=== PATIENT | male | born 1930 | race Caucasian/White ===

== ENCOUNTER 2019-01-16 20:06 | Inpatient (IN) ==
[2019-01-16 20:43] LABS: Basophils # 0.1 10*3/uL (0.0-0.2); Basophils % 0.4 % (0.0-0.8); Eosinophils # 0.1 10*3/uL (0.0-0.87); Eosinophils % 0.8 % (0.00-10.9); Hemoglobin 9.8 GM/DL (14.0-18.0); Immature Granulocytes % 0.8 %; Immature Granulocytes Absolute 0.13 #; Lymphocytes # 1.6 10*3/uL (1.4-4.0); Lymphocytes % 9.6 % (21.2-54.2); Mean Corpuscular HGB Conc 31.6 GM/DL (32-36); Mean Corpuscular Hemoglobin 31 PG (27-34); Mean Corpuscular Volume 97.8 FL (87-102); Mean Platelet Volume 11.7 FL (9.6-12.0); Monocytes # 0.6 10*3/uL (0.11-0.8); Monocytes % 3.7 % (1.7-12.7); Neutrophils # 14.2 10*3/uL (1.4-7.4); Neutrophils % 84.7 % (38.7-73.9); Platelet Count 269 T/CUMM (130-400); Red Blood Count 3.17 MC/CUMM (3.8-5.5); Red Cell Distribution Width 12.9 % (9.3-17.3); White Blood Count 16.7 T/CUMM (4-12)
[2019-01-16 20:53] LABS: PT Patient Result 10.4 SECS; Partial Thromboplastin Time 25.1 SECS (0-40)
[2019-01-16] MEDS ORDERED: FUROSEMIDE 40 MG/4 ML VIAL IV STA (21:06)
[2019-01-16] MEDS ORDERED: cefTRIAXone 1,000 MG in SODIUM CHLORIDE 0.9% 100 ML IV STA (21:06)
[2019-01-16] MEDS ORDERED: AZITHROMYCIN 250 MG TABLET PO STA (21:07)
[2019-01-16 21:13] LABS: Alanine Aminotransferase 13 U/L (16-61); Albumin 3.3 G/DL (3.4-5.0); Alkaline Phosphatase 94 U/L (45-117); Aspartate Amino Transferase 13 U/L (0-37); Bilirubin,Total < 0.39 MG/DL (0.2-1.0); Blood Urea Nitrogen 36 MG/DL (7-18); Glucose 207 MG/DL (74-106); Osmolality,Calculated 277.5 MOS/KG (273-304); Sodium 132 MMOL/L (136-145); Total Protein 6.6 G/DL (6.4-8.3)
[2019-01-16 21:15] LABS: Potassium 6.4 MMOL/L (3.5-5.1)
[2019-01-16] MEDS ORDERED: INSULIN REGULAR 100 UNIT/ML IV STA (22:00)
[2019-01-16] MEDS ORDERED: SODIUM BICARBONATE 50 MEQ/50 ML VIAL IV STA ×2 (22:00→22:01)
[2019-01-16] MEDS ORDERED: DEXTROSE 50% 25 GM/50 ML VIAL IV STA (22:00)
[2019-01-16] MEDS ORDERED: CALCIUM GLUCONATE 2,000 MG in SODIUM CHLORIDE 0.9% 100 ML IV ONE (22:01)
[2019-01-16] MEDS ORDERED: SODIUM BICARBONATE 50 MEQ/50 ML SYRINGE IV STA ×2 (22:06→22:07)
[2019-01-16] MEDS ORDERED: DEXTROSE 50% 25 GM/50 ML SYRINGE IV ONE (22:09)
[2019-01-16 23:00] LABS: Apearance,Urine CLEAR (Clear); Bilirubin,Urine Negative (Negative); Blood, Urine Negative (Negative); Glucose,Urine (UA) Negative (Negative); Hyaline Casts,Urine 25 /LPF (0-3); Ketones,Urine Negative (Negative); Mucus,Urine Occasional /LPF (Occasional); Nitrite,Urine Negative (Negative); Protein,Urine Negative; RBC,Urine 1 /HPF (0-4); Urine Color Yellow (Yellow); Urine Urobilinogen < 2.0 EU/DL (0.2-1.0); WBC,Urine 1 /HPF (0-6)
[2019-01-16] MEDS ORDERED: ACETAMINOPHEN 325 MG TABLET PO PRN (23:21)
[2019-01-16] MEDS ORDERED: ALBUTEROL 2.5 MG/3 ML NEB RESP TX PRN (23:21)
[2019-01-16] MEDS ORDERED: DEXTROSE 50% 25 GM/50 ML VIAL IV PRN ×2 (23:21)
[2019-01-16] MEDS ORDERED: MAGNESIUM SULF RIDER 2 GM in PREMIX 1 EACH IV PRN (23:21)
[2019-01-16] MEDS ORDERED: MAGNESIUM SULF RIDER 4 GM in PREMIX 1 EACH IV PRN (23:21)
[2019-01-16] MEDS ORDERED: GLUCAGON 1 MG VIAL IM PRN ×2 (23:21)
[2019-01-16] MEDS ORDERED: ENOXAPARIN 40 MG/0.4 ML SYRINGE SUBCUT SCH (23:30)
[2019-01-17] MEDS: ALBUTEROL/IPRATROPIUM 3 ML NEB RESP TX SCH ×4 (00:35→19:33)
[2019-01-17] MEDS: TAMSULOSIN 0.4 MG CAPSULE PO SCH ×2 (00:44→20:34)
[2019-01-17] MEDS: INSULIN REGULAR 100 UNIT/ML SUBCUT SCH ×5 (01:00→20:34)
[2019-01-17] MEDS ORDERED: ENOXAPARIN 60 MG/0.6 ML SYRINGE SUBCUT ONE (06:26)
[2019-01-17 08:05] LABS: Basophils % 0.3 % (0.0-0.8); Hematocrit 32.1 VOL% (42.0-52.0); Hemoglobin 10.1 GM/DL (14.0-18.0); Immature Granulocytes % 0.4 %; Immature Granulocytes Absolute 0.03 #; Lymphocytes % 13.5 % (21.2-54.2); Mean Corpuscular HGB Conc 31.5 GM/DL (32-36); Mean Corpuscular Hemoglobin 30 PG (27-34); Mean Corpuscular Volume 96.1 FL (87-102); Mean Platelet Volume 12.2 FL (9.6-12.0); Monocytes # 0.5 10*3/uL (0.11-0.8); Monocytes % 6.2 % (1.7-12.7); Neutrophils # 6.1 10*3/uL (1.4-7.4); Neutrophils % 79.6 % (38.7-73.9); Platelet Count 219 T/CUMM (130-400); Red Blood Count 3.34 MC/CUMM (3.8-5.5); Red Cell Distribution Width 12.9 % (9.3-17.3); White Blood Count 7.6 T/CUMM (4-12)
[2019-01-17] MEDS: GEMFIBROZIL 600 MG TABLET PO SCH ×2 (08:17→16:03)
[2019-01-17] MEDS: CARVEDILOL 25 MG TABLET PO SCH ×2 (08:17→16:03)
[2019-01-17] MEDS: PANTOPRAZOLE 40 MG TABLET PO SCH (08:17)
[2019-01-17] MEDS: ASPIRIN EC 81 MG TABLET PO SCH (08:17)
[2019-01-17] MEDS: DOCUSATE SODIUM 100 MG CAPSULE PO SCH (08:17)
[2019-01-17] MEDS: CLOPIDOGREL 75 MG TABLET PO SCH (08:17)
[2019-01-17] MEDS: FINASTERIDE 5 MG TABLET PO SCH (08:17)
[2019-01-17] MEDS: ISOSORBIDE MONONITRATE 30 MG TABLET PO SCH (08:17)
[2019-01-17 08:25] LABS: Albumin 3.1 G/DL (3.4-5.0); Bilirubin,Total 0.4 MG/DL (0.2-1.0); Calcium 10.2 MG/DL (8.5-10.1); Osmolality,Calculated 280.1 MOS/KG (273-304); Potassium 5.2 MMOL/L (3.5-5.1); Total Protein 6.9 G/DL (6.4-8.3)
[2019-01-17] MEDS: MAGNESIUM OXIDE 400 MG TABLET PO SCH ×2 (08:25→20:34)
[2019-01-17] MEDS: RANOLAZINE 500 MG TABLET PO SCH ×2 (08:25→20:33)
[2019-01-17] MEDS: FUROSEMIDE 40 MG/4 ML VIAL IV SCH ×2 (08:25→16:03)
[2019-01-17] MEDS: TELMISARTAN 40 MG TABLET PO SCH (08:28)
[2019-01-17 08:41] LABS: CKMB % 5.2 %
[2019-01-17 08:47] LABS: Troponin I 2.28 NG/ML (0.00-0.045)
[2019-01-17] MEDS ORDERED: ASCORBIC ACID 500 MG TABLET PO SCH (09:00)
[2019-01-17] MEDS: ATORVASTATIN 40 MG TABLET PO SCH (20:34)
[2019-01-17] MEDS: ASCORBIC ACID 500 MG TABLET PO SCH (20:34)
[2019-01-17] MEDS: AZITHROMYCIN INJ 500 MG in SODIUM CHLORIDE 0.9% 250 ML IV SCH (20:35)
[2019-01-17] MEDS: cefTRIAXone 1,000 MG in SYRINGE 1 EACH IV SCH (21:15)
[2019-01-18] MEDS: ALBUTEROL/IPRATROPIUM 3 ML NEB RESP TX SCH ×5 (01:30→20:00)
[2019-01-18 05:06] LABS: Basophils % 0.2 % (0.0-0.8); Eosinophils % 0.1 % (0.00-10.9); Hematocrit 28.7 VOL% (42.0-52.0); Hemoglobin 9.1 GM/DL (14.0-18.0); Immature Granulocytes % 0.5 %; Immature Granulocytes Absolute 0.04 #; Lymphocytes # 1.1 10*3/uL (1.4-4.0); Lymphocytes % 12.5 % (21.2-54.2); Mean Corpuscular HGB Conc 31.7 GM/DL (32-36); Mean Corpuscular Hemoglobin 30 PG (27-34); Mean Platelet Volume 11.9 FL (9.6-12.0); Monocytes # 0.7 10*3/uL (0.11-0.8); Neutrophils # 6.6 10*3/uL (1.4-7.4); Neutrophils % 78.7 % (38.7-73.9); Platelet Count 200 T/CUMM (130-400); Red Blood Count 2.99 MC/CUMM (3.8-5.5); Red Cell Distribution Width 12.8 % (9.3-17.3); White Blood Count 8.4 T/CUMM (4-12)
[2019-01-18 05:15] LABS: Calcium 9.7 MG/DL (8.5-10.1); Osmolality,Calculated 283.1 MOS/KG (273-304)
[2019-01-18] MEDS: INSULIN REGULAR 100 UNIT/ML SUBCUT SCH ×4 (07:35→22:17)
[2019-01-18] MEDS: RANOLAZINE 500 MG TABLET PO SCH ×2 (08:21→22:18)
[2019-01-18] MEDS: ASCORBIC ACID 500 MG TABLET PO SCH ×2 (08:21→22:18)
[2019-01-18] MEDS: CLOPIDOGREL 75 MG TABLET PO SCH (08:21)
[2019-01-18] MEDS: FINASTERIDE 5 MG TABLET PO SCH (08:21)
[2019-01-18] MEDS: GEMFIBROZIL 600 MG TABLET PO SCH ×2 (08:21→16:26)
[2019-01-18] MEDS: ASPIRIN EC 81 MG TABLET PO SCH (08:22)
[2019-01-18] MEDS: MAGNESIUM OXIDE 400 MG TABLET PO SCH ×2 (08:22→22:18)
[2019-01-18] MEDS: CARVEDILOL 25 MG TABLET PO SCH ×2 (08:22→16:26)
[2019-01-18] MEDS: FUROSEMIDE 40 MG/4 ML VIAL IV SCH ×2 (08:22→16:20)
[2019-01-18] MEDS: ISOSORBIDE MONONITRATE 30 MG TABLET PO SCH (08:22)
[2019-01-18] MEDS: PANTOPRAZOLE 40 MG TABLET PO SCH (08:22)
[2019-01-18] MEDS: DOCUSATE SODIUM 100 MG CAPSULE PO SCH (08:22)
[2019-01-18] MEDS: TELMISARTAN 40 MG TABLET PO SCH (08:22)
[2019-01-18] MEDS: ENOXAPARIN 100 MG/ML SYRINGE SUBCUT SCH (08:23)
[2019-01-18] MEDS: ONDANSETRON 4 MG/2 ML VIAL IV PRN (16:50)
[2019-01-18] MEDS: TAMSULOSIN 0.4 MG CAPSULE PO SCH (22:17)
[2019-01-18] MEDS: ATORVASTATIN 40 MG TABLET PO SCH (22:18)
[2019-01-18] MEDS: cefTRIAXone 1,000 MG in SYRINGE 1 EACH IV SCH (22:19)
[2019-01-18] MEDS: AZITHROMYCIN INJ 500 MG in SODIUM CHLORIDE 0.9% 250 ML IV SCH (22:19)
[2019-01-19] MEDS: ALBUTEROL/IPRATROPIUM 3 ML NEB RESP TX SCH ×4 (01:51→19:07)
[2019-01-19 04:46] LABS: Basophils % 0.6 % (0.0-0.8); Eosinophils % 0.2 % (0.00-10.9); Hematocrit 27.2 VOL% (42.0-52.0); Hemoglobin 8.7 GM/DL (14.0-18.0); Immature Granulocytes % 0.6 %; Immature Granulocytes Absolute 0.03 #; Lymphocytes # 0.9 10*3/uL (1.4-4.0); Lymphocytes % 17.3 % (21.2-54.2); Mean Corpuscular Hemoglobin 31 PG (27-34); Mean Corpuscular Volume 95.4 FL (87-102); Mean Platelet Volume 11.8 FL (9.6-12.0); Monocytes # 0.4 10*3/uL (0.11-0.8); Monocytes % 7.7 % (1.7-12.7); Neutrophils # 3.9 10*3/uL (1.4-7.4); Neutrophils % 73.6 % (38.7-73.9); Platelet Count 195 T/CUMM (130-400); Red Blood Count 2.85 MC/CUMM (3.8-5.5); Red Cell Distribution Width 12.8 % (9.3-17.3); White Blood Count 5.3 T/CUMM (4-12)
[2019-01-19 05:01] LABS: Calcium 9.1 MG/DL (8.5-10.1); Osmolality,Calculated 287.1 MOS/KG (273-304); Potassium 5.2 MMOL/L (3.5-5.1)
[2019-01-19] MEDS: INSULIN REGULAR 100 UNIT/ML SUBCUT SCH ×4 (07:45→20:59)
[2019-01-19] MEDS: FINASTERIDE 5 MG TABLET PO SCH (08:17)
[2019-01-19] MEDS: DOCUSATE SODIUM 100 MG CAPSULE PO SCH (08:17)
[2019-01-19] MEDS: TELMISARTAN 40 MG TABLET PO SCH (08:17)
[2019-01-19] MEDS: RANOLAZINE 500 MG TABLET PO SCH ×2 (08:17→21:00)
[2019-01-19] MEDS: AZITHROMYCIN 250 MG TABLET PO SCH (08:17)
[2019-01-19] MEDS: CARVEDILOL 25 MG TABLET PO SCH ×2 (08:18→16:16)
[2019-01-19] MEDS: CLOPIDOGREL 75 MG TABLET PO SCH (08:18)
[2019-01-19] MEDS: GEMFIBROZIL 600 MG TABLET PO SCH ×2 (08:18→16:16)
[2019-01-19] MEDS: MAGNESIUM OXIDE 400 MG TABLET PO SCH ×2 (08:18→21:00)
[2019-01-19] MEDS: ASPIRIN EC 81 MG TABLET PO SCH (08:18)
[2019-01-19] MEDS: ASCORBIC ACID 500 MG TABLET PO SCH ×2 (08:18→21:00)
[2019-01-19] MEDS: ISOSORBIDE MONONITRATE 30 MG TABLET PO SCH (08:19)
[2019-01-19] MEDS: FUROSEMIDE 40 MG/4 ML VIAL IV SCH (08:19)
[2019-01-19] MEDS: ENOXAPARIN 100 MG/ML SYRINGE SUBCUT SCH (08:19)
[2019-01-19] MEDS: PANTOPRAZOLE 40 MG TABLET PO SCH (08:19)
[2019-01-19] MEDS: TAMSULOSIN 0.4 MG CAPSULE PO SCH (20:59)
[2019-01-19] MEDS: ATORVASTATIN 40 MG TABLET PO SCH (20:59)
[2019-01-19] MEDS: cefTRIAXone 1,000 MG in SYRINGE 1 EACH IV SCH (21:00)
[2019-01-20] MEDS: ALBUTEROL/IPRATROPIUM 3 ML NEB RESP TX SCH ×4 (00:25→19:27)
[2019-01-20 05:19] LABS: Basophils # 0.1 10*3/uL (0.0-0.2); Basophils % 0.7 % (0.0-0.8); Eosinophils # 0.1 10*3/uL (0.0-0.87); Eosinophils % 0.7 % (0.00-10.9); Hematocrit 26.5 VOL% (42.0-52.0); Hemoglobin 8.8 GM/DL (14.0-18.0); Immature Granulocytes % 0.4 %; Immature Granulocytes Absolute 0.03 #; Lymphocytes # 1.1 10*3/uL (1.4-4.0); Lymphocytes % 15.1 % (21.2-54.2); Mean Corpuscular HGB Conc 33.2 GM/DL (32-36); Mean Corpuscular Hemoglobin 32 PG (27-34); Mean Platelet Volume 12.2 FL (9.6-12.0); Monocytes # 0.6 10*3/uL (0.11-0.8); Monocytes % 8.8 % (1.7-12.7); Neutrophils # 5.4 10*3/uL (1.4-7.4); Neutrophils % 74.3 % (38.7-73.9); Platelet Count 211 T/CUMM (130-400); Red Blood Count 2.79 MC/CUMM (3.8-5.5); White Blood Count 7.3 T/CUMM (4-12)
[2019-01-20 05:38] LABS: Calcium 9.4 MG/DL (8.5-10.1); Osmolality,Calculated 281.7 MOS/KG (273-304); Potassium 5.3 MMOL/L (3.5-5.1)
[2019-01-20] MEDS: INSULIN REGULAR 100 UNIT/ML SUBCUT SCH ×3 (08:09→17:33)
[2019-01-20] MEDS: GEMFIBROZIL 600 MG TABLET PO SCH ×2 (09:27→17:33)
[2019-01-20] MEDS: CARVEDILOL 25 MG TABLET PO SCH ×2 (09:28→17:33)
[2019-01-20] MEDS: ASPIRIN EC 81 MG TABLET PO SCH (09:29)
[2019-01-20] MEDS: ISOSORBIDE MONONITRATE 30 MG TABLET PO SCH (09:30)
[2019-01-20] MEDS: DOCUSATE SODIUM 100 MG CAPSULE PO SCH (09:30)
[2019-01-20] MEDS: FUROSEMIDE 40 MG TABLET PO SCH (09:31)
[2019-01-20] MEDS: CLOPIDOGREL 75 MG TABLET PO SCH (09:32)
[2019-01-20] MEDS: FINASTERIDE 5 MG TABLET PO SCH (09:33)
[2019-01-20] MEDS: RANOLAZINE 500 MG TABLET PO SCH ×2 (09:34→21:46)
[2019-01-20] MEDS: PANTOPRAZOLE 40 MG TABLET PO SCH (09:34)
[2019-01-20] MEDS: ASCORBIC ACID 500 MG TABLET PO SCH ×2 (09:36→21:47)
[2019-01-20] MEDS: AZITHROMYCIN 250 MG TABLET PO SCH (09:37)
[2019-01-20] MEDS: MAGNESIUM OXIDE 400 MG TABLET PO SCH ×2 (09:41→21:47)
[2019-01-20] MEDS: ENOXAPARIN 100 MG/ML SYRINGE SUBCUT SCH (09:41)
[2019-01-20] MEDS: TAMSULOSIN 0.4 MG CAPSULE PO SCH (21:47)
[2019-01-20] MEDS: ATORVASTATIN 40 MG TABLET PO SCH (21:47)
[2019-01-21] MEDS: cefTRIAXone 1,000 MG in SYRINGE 1 EACH IV SCH ×2 (00:42→22:47)
[2019-01-21] MEDS: INSULIN REGULAR 100 UNIT/ML SUBCUT SCH ×5 (00:42→22:34)
[2019-01-21] MEDS: ALBUTEROL/IPRATROPIUM 3 ML NEB RESP TX SCH ×4 (00:43→19:35)
[2019-01-21 03:47] LABS: Basophils % 0.3 % (0.0-0.8); Hematocrit 25.3 VOL% (42.0-52.0); Hemoglobin 8.4 GM/DL (14.0-18.0); Immature Granulocytes % 0.2 %; Immature Granulocytes Absolute 0.01 #; Lymphocytes % 18.2 % (21.2-54.2); Mean Corpuscular HGB Conc 33.2 GM/DL (32-36); Mean Corpuscular Hemoglobin 31 PG (27-34); Mean Corpuscular Volume 93.4 FL (87-102); Mean Platelet Volume 12.2 FL (9.6-12.0); Monocytes # 0.7 10*3/uL (0.11-0.8); Monocytes % 12.2 % (1.7-12.7); Neutrophils % 69.1 % (38.7-73.9); Platelet Count 213 T/CUMM (130-400); Red Blood Count 2.71 MC/CUMM (3.8-5.5); Red Cell Distribution Width 12.9 % (9.3-17.3); White Blood Count 5.7 T/CUMM (4-12)
[2019-01-21 04:03] LABS: Calcium 8.9 MG/DL (8.5-10.1); Osmolality,Calculated 286.7 MOS/KG (273-304); Potassium 5.2 MMOL/L (3.5-5.1)
[2019-01-21] MEDS: PANTOPRAZOLE 40 MG TABLET PO SCH (08:39)
[2019-01-21] MEDS: FINASTERIDE 5 MG TABLET PO SCH (08:39)
[2019-01-21] MEDS: RANOLAZINE 500 MG TABLET PO SCH ×2 (08:39→22:42)
[2019-01-21] MEDS: ISOSORBIDE MONONITRATE 30 MG TABLET PO SCH (08:39)
[2019-01-21] MEDS: CLOPIDOGREL 75 MG TABLET PO SCH (08:40)
[2019-01-21] MEDS: GEMFIBROZIL 600 MG TABLET PO SCH ×2 (08:40→16:28)
[2019-01-21] MEDS: DOCUSATE SODIUM 100 MG CAPSULE PO SCH (08:40)
[2019-01-21] MEDS: ASPIRIN EC 81 MG TABLET PO SCH (08:40)
[2019-01-21] MEDS: AZITHROMYCIN 250 MG TABLET PO SCH (08:40)
[2019-01-21] MEDS: ASCORBIC ACID 500 MG TABLET PO SCH ×2 (08:40→22:40)
[2019-01-21] MEDS: MAGNESIUM OXIDE 400 MG TABLET PO SCH ×2 (08:41→22:41)
[2019-01-21] MEDS: CARVEDILOL 25 MG TABLET PO SCH ×2 (08:41→16:28)
[2019-01-21] MEDS: ENOXAPARIN 100 MG/ML SYRINGE SUBCUT SCH (08:41)
[2019-01-21] MEDS: FUROSEMIDE 40 MG TABLET PO SCH (08:41)
[2019-01-21] MEDS: ONDANSETRON 4 MG/2 ML VIAL IV PRN (08:51)
[2019-01-21] MEDS ORDERED: SODIUM CHLORIDE 0.9% 1,000 ML IV PRN (13:17)
[2019-01-21] MEDS: SODIUM CHLORIDE 0.9% 1,000 ML IV SCH (14:56)
[2019-01-21] MEDS: TAMSULOSIN 0.4 MG CAPSULE PO SCH (22:38)
[2019-01-21] MEDS: ATORVASTATIN 40 MG TABLET PO SCH (22:41)
[2019-01-22] MEDS: ALBUTEROL/IPRATROPIUM 3 ML NEB RESP TX SCH ×5 (00:31→23:31)
[2019-01-22 04:32] LABS: Basophils % 0.1 % (0.0-0.8); Hematocrit 29.5 VOL% (42.0-52.0); Immature Granulocytes % 0.4 %; Immature Granulocytes Absolute 0.04 #; Lymphocytes # 0.7 10*3/uL (1.4-4.0); Lymphocytes % 7.4 % (21.2-54.2); Mean Corpuscular HGB Conc 33.9 GM/DL (32-36); Mean Corpuscular Hemoglobin 31 PG (27-34); Mean Corpuscular Volume 90.2 FL (87-102); Mean Platelet Volume 12.6 FL (9.6-12.0); Monocytes # 0.7 10*3/uL (0.11-0.8); Monocytes % 7.8 % (1.7-12.7); Neutrophils # 7.9 10*3/uL (1.4-7.4); Neutrophils % 84.3 % (38.7-73.9); Platelet Count 202 T/CUMM (130-400); Red Blood Count 3.27 MC/CUMM (3.8-5.5); Red Cell Distribution Width 13.7 % (9.3-17.3); White Blood Count 9.3 T/CUMM (4-12)
[2019-01-22 04:56] LABS: Calcium 9.2 MG/DL (8.5-10.1); Osmolality,Calculated 282.2 MOS/KG (273-304); Potassium 5.6 MMOL/L (3.5-5.1)
[2019-01-22] MEDS: INSULIN REGULAR 100 UNIT/ML SUBCUT SCH ×5 (07:59→22:33)
[2019-01-22] MEDS: ASCORBIC ACID 500 MG TABLET PO SCH ×2 (09:00→22:25)
[2019-01-22] MEDS: ISOSORBIDE MONONITRATE 30 MG TABLET PO SCH (09:01)
[2019-01-22] MEDS: GEMFIBROZIL 600 MG TABLET PO SCH ×2 (09:01→17:00)
[2019-01-22] MEDS: FINASTERIDE 5 MG TABLET PO SCH (09:01)
[2019-01-22] MEDS: DOCUSATE SODIUM 100 MG CAPSULE PO SCH (09:01)
[2019-01-22] MEDS: RANOLAZINE 500 MG TABLET PO SCH ×2 (09:01→22:25)
[2019-01-22] MEDS: PANTOPRAZOLE 40 MG TABLET PO SCH (09:01)
[2019-01-22] MEDS: AZITHROMYCIN 250 MG TABLET PO SCH (09:01)
[2019-01-22] MEDS: ENOXAPARIN 100 MG/ML SYRINGE SUBCUT SCH (09:02)
[2019-01-22] MEDS: CLOPIDOGREL 75 MG TABLET PO SCH (09:02)
[2019-01-22] MEDS: ASPIRIN EC 81 MG TABLET PO SCH (09:02)
[2019-01-22] MEDS: CARVEDILOL 25 MG TABLET PO SCH ×2 (09:02→17:00)
[2019-01-22] MEDS: MAGNESIUM OXIDE 400 MG TABLET PO SCH ×2 (09:02→20:50)
[2019-01-22] MEDS: POLYETHYLENE GLYCOL POWDER 17 GM PACK PO SCH (09:22)
[2019-01-22] MEDS ORDERED: FUROSEMIDE 40 MG/4 ML VIAL IV SCH (13:00)
[2019-01-22] MEDS: methylPREDNISolone SOD SUC 40 MG/1 ML VIAL IV SCH ×2 (15:51→22:39)
[2019-01-22] MEDS: SODIUM CHLORIDE 0.9% 1,000 ML IV SCH (15:59)
[2019-01-22] MEDS: MAGNESIUM HYDROXIDE SUSP 30 ML UDCUP PO PRN (17:00)
[2019-01-22] MEDS: ONDANSETRON 4 MG/2 ML VIAL IV PRN (18:05)
[2019-01-22] MEDS ORDERED: ESCITALOPRAM 10 MG TABLET PO SCH (21:00)
[2019-01-22] MEDS: ATORVASTATIN 40 MG TABLET PO SCH (22:26)
[2019-01-22] MEDS: TAMSULOSIN 0.4 MG CAPSULE PO SCH (22:26)
[2019-01-22] MEDS: ESCITALOPRAM 10 MG TABLET PO SCH (22:26)
[2019-01-22] MEDS: cefTRIAXone 1,000 MG in SYRINGE 1 EACH IV SCH (22:27)
[2019-01-22] MEDS ORDERED: FUROSEMIDE 20 MG/2 ML VIAL IV ONE (23:30)
[2019-01-23 00:39] LABS: ABG Base Excess -3.9 MMOL/L (-2.5-2.5); ABG Oxygen Saturation 87.2 % (95-100); ABG PCO2 50.3 MM HG (35-48); ABG PH 7.272 (7.35-7.45); ABG PO2 58.5 MM HG (80-95); ABG TCO2 21.6 MMOL/L (23-27); Allen Test Positive
[2019-01-23] MEDS ORDERED: MAGNESIUM SULF RIDER 50 ML IV ONE (03:35)
[2019-01-23] MEDS ORDERED: AMIODARONE 450 MG/9 ML VIAL IV ONE (03:44)
[2019-01-23] MEDS ORDERED: SODIUM BICARBONATE 50 MEQ/50 ML VIAL IV ONE ×2 (03:55→04:48)
[2019-01-23] MEDS ORDERED: PROPOFOL 1,000 MG/100 ML BOTTLE IV ONE (03:58)
[2019-01-23] MEDS ORDERED: AMIODARONE INJ 450 MG in DEXTROSE 5% 241 ML IV SCH (04:00)
[2019-01-23] MEDS ORDERED: SODIUM BICARB INJ 50 MEQ in SODIUM CHLORIDE 0.45% 1,000 ML IV SCH (04:00)
[2019-01-23 04:11] LABS: Hematocrit 29.2 VOL% (42.0-52.0); Hemoglobin 9.7 GM/DL (14.0-18.0); Immature Granulocytes % 1.2 %; Immature Granulocytes Absolute 0.08 #; Lymphocytes # 1.1 10*3/uL (1.4-4.0); Lymphocytes % 16.6 % (21.2-54.2); Mean Corpuscular HGB Conc 33.2 GM/DL (32-36); Mean Corpuscular Hemoglobin 30 PG (27-34); Mean Corpuscular Volume 91.3 FL (87-102); Mean Platelet Volume 12.8 FL (9.6-12.0); Monocytes # 0.1 10*3/uL (0.11-0.8); Monocytes % 0.8 % (1.7-12.7); Neutrophils # 5.3 10*3/uL (1.4-7.4); Neutrophils % 81.4 % (38.7-73.9); Platelet Count 200 T/CUMM (130-400); Red Cell Distribution Width 14.1 % (9.3-17.3); White Blood Count 6.5 T/CUMM (4-12)
[2019-01-23 04:16] LABS: ABG Base Excess -3.8 MMOL/L (-2.5-2.5); ABG HCO3 21.3 MMOL/L (20-26); ABG Oxygen Saturation 99.3 % (95-100); ABG PCO2 51.3 MM HG (35-48); ABG PH 7.269 (7.35-7.45); ABG TCO2 21.7 MMOL/L (23-27); Allen Test Positive; Pt O2 Delivery Device Ventilator
[2019-01-23] MEDS ORDERED: VANCOMYCIN INJ 1,000 MG in SODIUM CHLORIDE 0.9% 250 ML IV ONE (04:22)
[2019-01-23] MEDS ORDERED: ATROPINE 1 MG/10 ML SYRINGE IV PRN (04:28)
[2019-01-23] MEDS ORDERED: ATROPINE 1 MG/10 ML SYRINGE IV ONE (04:31)
[2019-01-23 04:39] LABS: Albumin 2.8 G/DL (3.4-5.0); Bilirubin,Total 0.4 MG/DL (0.2-1.0); Osmolality,Calculated 293.1 MOS/KG (273-304); Potassium 5.9 MMOL/L (3.5-5.1)
[2019-01-23] MEDS ORDERED: INSULIN REGULAR 100 UNIT/ML SUBCUT ONE (04:49)
[2019-01-23 04:51] LABS: Calcium 9.8 MG/DL (8.5-10.1); Osmolality,Calculated 295.9 MOS/KG (273-304); Potassium 5.9 MMOL/L (3.5-5.1)
[2019-01-23 04:58] LABS: Anisocytosis Slight; Microcytosis Slight
[2019-01-23 04:59] LABS: Platelet Estimate Normal; Polychromasia Slight
[2019-01-23] MEDS: NOREPINEPHRINE 8 MG in SODIUM CHLORIDE 0.9% 242 ML IV PRN (04:59)
[2019-01-23] MEDS: PROPOFOL 1,000 MG/100 ML BOTTLE IV SCH ×2 (06:03→20:30)
[2019-01-23] MEDS: PIPERACILLIN/TAZOBACTAM 3,375 MG in SODIUM CHLORIDE 0.9% 100 ML IV SCH ×2 (07:00→16:03)
[2019-01-23] MEDS: INSULIN REGULAR 100 UNIT/ML SUBCUT SCH ×4 (07:31→23:57)
[2019-01-23] MEDS: ALBUTEROL/IPRATROPIUM 3 ML NEB RESP TX SCH ×3 (07:35→19:35)
[2019-01-23] MEDS: FUROSEMIDE 40 MG/4 ML VIAL IV SCH ×2 (08:49→15:47)
[2019-01-23] MEDS: methylPREDNISolone SOD SUC 40 MG/1 ML VIAL IV SCH ×3 (08:49→23:58)
[2019-01-23] MEDS: CARVEDILOL 25 MG TABLET PO SCH ×2 (08:50→16:04)
[2019-01-23] MEDS: ISOSORBIDE MONONITRATE 30 MG TABLET PO SCH (09:00)
[2019-01-23] MEDS: MAGNESIUM OXIDE 400 MG TABLET PO SCH ×2 (09:05→20:14)
[2019-01-23] MEDS: FINASTERIDE 5 MG TABLET PO SCH (11:48)
[2019-01-23] MEDS: GEMFIBROZIL 600 MG TABLET PO SCH ×2 (11:48→16:04)
[2019-01-23] MEDS: DOCUSATE SODIUM 100 MG CAPSULE PO SCH (11:48)
[2019-01-23] MEDS: ASPIRIN CHEW 81 MG TABLET PO SCH (11:48)
[2019-01-23] MEDS: ASCORBIC ACID 500 MG TABLET PO SCH ×2 (11:48→20:14)
[2019-01-23] MEDS: RANOLAZINE 500 MG TABLET PO SCH ×2 (11:48→20:14)
[2019-01-23] MEDS: LANSOPRAZOLE ODT 30 MG TABLET PER TUBE SCH (11:49)
[2019-01-23] MEDS: POLYETHYLENE GLYCOL POWDER 17 GM PACK PO SCH (11:49)
[2019-01-23] MEDS: CLOPIDOGREL 75 MG TABLET PO SCH (11:49)
[2019-01-23] MEDS: SODIUM CHLORIDE 1 GM TABLET PER TUBE SCH ×2 (11:49→20:13)
[2019-01-23] MEDS: ENOXAPARIN 100 MG/ML SYRINGE SUBCUT SCH (12:14)
[2019-01-23] MEDS: DOBUTamine 500 MG/250 ML PREMIX IV PRN (12:32)
[2019-01-23] MEDS: ENOXAPARIN 30 MG/0.3 ML SYRINGE SUBCUT SCH (12:32)
[2019-01-23] MEDS ORDERED: SODIUM BICARB INJ 100 MEQ in SODIUM CHLORIDE 0.45% 1,000 ML IV SCH (14:00)
[2019-01-23] MEDS: ATORVASTATIN 40 MG TABLET PO SCH (20:14)
[2019-01-23] MEDS: ESCITALOPRAM 10 MG TABLET PO SCH (20:14)
[2019-01-23] MEDS: TAMSULOSIN 0.4 MG CAPSULE PO SCH (20:30)
[2019-01-24] MEDS: ALBUTEROL/IPRATROPIUM 3 ML NEB RESP TX SCH ×4 (00:36→19:42)
[2019-01-24] MEDS: SODIUM BICARB INJ 50 MEQ in SODIUM CHLORIDE 0.45% 1,000 ML IV SCH ×2 (01:12→22:54)
[2019-01-24 04:11] LABS: Allen Test Positive; Pt O2 Delivery Device Ventilator
[2019-01-24 04:12] LABS: ABG HCO3 25.3 MMOL/L (20-26); ABG Oxygen Saturation 98.1 % (95-100); ABG PCO2 37.8 MM HG (35-48); ABG PH 7.432 (7.35-7.45); ABG PO2 96.6 MM HG (80-95); ABG TCO2 23.4 MMOL/L (23-27)
[2019-01-24 04:48] LABS: Basophils % 0.1 % (0.0-0.8); Hematocrit 23.5 VOL% (42.0-52.0); Hemoglobin 7.9 GM/DL (14.0-18.0); Immature Granulocytes % 0.5 %; Immature Granulocytes Absolute 0.05 #; Lymphocytes # 0.5 10*3/uL (1.4-4.0); Lymphocytes % 4.8 % (21.2-54.2); Mean Corpuscular HGB Conc 33.6 GM/DL (32-36); Mean Corpuscular Hemoglobin 31 PG (27-34); Mean Corpuscular Volume 91.1 FL (87-102); Mean Platelet Volume 13.3 FL (9.6-12.0); Monocytes # 0.8 10*3/uL (0.11-0.8); Monocytes % 7.3 % (1.7-12.7); Neutrophils # 9.3 10*3/uL (1.4-7.4); Neutrophils % 87.3 % (38.7-73.9); Platelet Count 188 T/CUMM (130-400); Red Blood Count 2.58 MC/CUMM (3.8-5.5); Red Cell Distribution Width 14.1 % (9.3-17.3); White Blood Count 10.6 T/CUMM (4-12)
[2019-01-24 04:54] LABS: Calcium 8.5 MG/DL (8.5-10.1); Osmolality,Calculated 301.1 MOS/KG (273-304); Potassium 5.5 MMOL/L (3.5-5.1)
[2019-01-24 05:05] LABS: Prealbumin 12.3 MG/DL (20-40)
[2019-01-24 05:25] LABS: Lymphocytes 4 % (20-55); Platelet Estimate Normal; Segmented Neutrophils 93 % (50-85); Total Cells Counted 100
[2019-01-24] MEDS: PIPERACILLIN/TAZOBACTAM 3,375 MG in SODIUM CHLORIDE 0.9% 100 ML IV SCH ×2 (05:27→18:47)
[2019-01-24] MEDS: DOBUTamine 500 MG/250 ML PREMIX IV PRN ×2 (05:43→17:50)
[2019-01-24] MEDS: PROPOFOL 1,000 MG/100 ML BOTTLE IV SCH (05:55)
[2019-01-24] MEDS: INSULIN REGULAR 100 UNIT/ML SUBCUT SCH ×3 (06:08→18:48)
[2019-01-24] MEDS: GEMFIBROZIL 600 MG TABLET PO SCH ×2 (08:24→18:48)
[2019-01-24] MEDS: methylPREDNISolone SOD SUC 40 MG/1 ML VIAL IV SCH ×2 (08:25→15:20)
[2019-01-24] MEDS: CARVEDILOL 25 MG TABLET PO SCH ×2 (08:28→18:38)
[2019-01-24] MEDS: NOREPINEPHRINE 8 MG in SODIUM CHLORIDE 0.9% 242 ML IV PRN ×2 (08:42→22:23)
[2019-01-24] MEDS: FUROSEMIDE 40 MG/4 ML VIAL IV SCH ×2 (09:02→15:20)
[2019-01-24] MEDS: FINASTERIDE 5 MG TABLET PO SCH (09:03)
[2019-01-24] MEDS: CLOPIDOGREL 75 MG TABLET PO SCH (09:03)
[2019-01-24] MEDS: RANOLAZINE 500 MG TABLET PO SCH ×2 (09:04→21:42)
[2019-01-24] MEDS: POLYETHYLENE GLYCOL POWDER 17 GM PACK PO SCH (09:04)
[2019-01-24] MEDS: ASCORBIC ACID 500 MG TABLET PO SCH ×2 (09:04→21:42)
[2019-01-24] MEDS: DOCUSATE SODIUM 100 MG CAPSULE PO SCH (09:04)
[2019-01-24] MEDS: LANSOPRAZOLE ODT 30 MG TABLET PER TUBE SCH (09:04)
[2019-01-24] MEDS: ASPIRIN CHEW 81 MG TABLET PO SCH (09:04)
[2019-01-24] MEDS: ISOSORBIDE MONONITRATE 30 MG TABLET PO SCH (09:05)
[2019-01-24] MEDS: MAGNESIUM OXIDE 400 MG TABLET PO SCH ×2 (09:05→21:43)
[2019-01-24] MEDS: SODIUM CHLORIDE 1 GM TABLET PER TUBE SCH ×2 (10:02→21:42)
[2019-01-24] MEDS: MIDAZOLAM 100 MG in SODIUM CHLORIDE 0.9% 80 ML IV PRN (10:36)
[2019-01-24] MEDS: ENOXAPARIN 30 MG/0.3 ML SYRINGE SUBCUT SCH (12:09)
[2019-01-24] MEDS: ESCITALOPRAM 10 MG TABLET PO SCH (21:42)
[2019-01-24] MEDS: MAGNESIUM HYDROXIDE SUSP 30 ML UDCUP PO PRN (21:42)
[2019-01-24] MEDS: TAMSULOSIN 0.4 MG CAPSULE PO SCH (21:43)
[2019-01-24] MEDS: ATORVASTATIN 40 MG TABLET PO SCH (21:43)
[2019-01-25] MEDS: methylPREDNISolone SOD SUC 40 MG/1 ML VIAL IV SCH ×3 (00:28→15:56)
[2019-01-25] MEDS: INSULIN REGULAR 100 UNIT/ML SUBCUT SCH ×4 (00:29→17:28)
[2019-01-25] MEDS: ALBUTEROL/IPRATROPIUM 3 ML NEB RESP TX SCH ×4 (01:00→19:00)
[2019-01-25 04:25] LABS: Allen Test Positive
[2019-01-25 04:26] LABS: ABG Base Excess 2.9 MMOL/L (-2.5-2.5); ABG HCO3 26.8 MMOL/L (20-26); ABG Oxygen Saturation 95.2 % (95-100); ABG PCO2 37.7 MM HG (35-48); ABG PH 7.469 (7.35-7.45); ABG PO2 77.9 MM HG (80-95); ABG TCO2 27.9 MMOL/L (23-27)
[2019-01-25] MEDS: PROPOFOL 1,000 MG/100 ML BOTTLE IV SCH (05:10)
[2019-01-25 05:52] LABS: Basophils % 0.1 % (0.0-0.8); Hematocrit 24.7 VOL% (42.0-52.0); Hemoglobin 8.2 GM/DL (14.0-18.0); Immature Granulocytes % 0.9 %; Immature Granulocytes Absolute 0.12 #; Lymphocytes # 0.6 10*3/uL (1.4-4.0); Lymphocytes % 4.4 % (21.2-54.2); Mean Corpuscular HGB Conc 33.2 GM/DL (32-36); Mean Corpuscular Hemoglobin 30 PG (27-34); Mean Corpuscular Volume 91.1 FL (87-102); Monocytes # 0.7 10*3/uL (0.11-0.8); Monocytes % 5.2 % (1.7-12.7); Neutrophils # 12.4 10*3/uL (1.4-7.4); Neutrophils % 89.4 % (38.7-73.9); Platelet Count 179 T/CUMM (130-400); Red Blood Count 2.71 MC/CUMM (3.8-5.5); Red Cell Distribution Width 14.4 % (9.3-17.3); White Blood Count 13.9 T/CUMM (4-12)
[2019-01-25 06:11] LABS: Calcium 8.9 MG/DL (8.5-10.1); Osmolality,Calculated 302.2 MOS/KG (273-304); Potassium 4.9 MMOL/L (3.5-5.1)
[2019-01-25] MEDS: PIPERACILLIN/TAZOBACTAM 3,375 MG in SODIUM CHLORIDE 0.9% 100 ML IV SCH ×2 (06:21→15:57)
[2019-01-25 06:47] LABS: Band Neutrophils 4 % (0-10); Eosinophils 1 % (0-10); Lymphocytes 4 % (20-55); Metamyelocytes 1 %; Platelet Estimate Normal; Segmented Neutrophils 85 % (50-85); Total Cells Counted 100
[2019-01-25 06:48] LABS: Anisocytosis 1+; Macrocytosis 1+
[2019-01-25] MEDS: FUROSEMIDE 40 MG/4 ML VIAL IV SCH ×2 (07:50→15:57)
[2019-01-25] MEDS: GEMFIBROZIL 600 MG TABLET PO SCH ×2 (07:50→15:57)
[2019-01-25] MEDS: CARVEDILOL 25 MG TABLET PO SCH (08:14)
[2019-01-25] MEDS: ASPIRIN CHEW 81 MG TABLET PO SCH (09:51)
[2019-01-25] MEDS: RANOLAZINE 500 MG TABLET PO SCH ×2 (09:51→21:47)
[2019-01-25] MEDS: ISOSORBIDE MONONITRATE 30 MG TABLET PO SCH (09:51)
[2019-01-25] MEDS: ASCORBIC ACID 500 MG TABLET PO SCH ×2 (09:51→21:47)
[2019-01-25] MEDS: CLOPIDOGREL 75 MG TABLET PO SCH (09:51)
[2019-01-25] MEDS: POLYETHYLENE GLYCOL POWDER 17 GM PACK PO SCH (09:51)
[2019-01-25] MEDS: MAGNESIUM OXIDE 400 MG TABLET PO SCH ×2 (09:51→21:47)
[2019-01-25] MEDS: DOCUSATE SODIUM 100 MG CAPSULE PO SCH (09:51)
[2019-01-25] MEDS: SODIUM CHLORIDE 1 GM TABLET PER TUBE SCH ×2 (09:52→21:48)
[2019-01-25] MEDS: FINASTERIDE 5 MG TABLET PO SCH (09:52)
[2019-01-25] MEDS: LANSOPRAZOLE ODT 30 MG TABLET PER TUBE SCH (09:52)
[2019-01-25] MEDS: DOBUTamine 500 MG/250 ML PREMIX IV PRN (10:13)
[2019-01-25] MEDS: MIDAZOLAM 100 MG in SODIUM CHLORIDE 0.9% 80 ML IV PRN (11:01)
[2019-01-25] MEDS: ENOXAPARIN 30 MG/0.3 ML SYRINGE SUBCUT SCH (12:01)
[2019-01-25] MEDS: SODIUM BICARB INJ 50 MEQ in SODIUM CHLORIDE 0.45% 1,000 ML IV SCH ×2 (15:10→17:43)
[2019-01-25] MEDS: ESCITALOPRAM 10 MG TABLET PO SCH (21:46)
[2019-01-25] MEDS: ATORVASTATIN 40 MG TABLET PO SCH (21:47)
[2019-01-26] MEDS: methylPREDNISolone SOD SUC 40 MG/1 ML VIAL IV SCH ×4 (00:41→23:32)
[2019-01-26] MEDS: INSULIN REGULAR 100 UNIT/ML SUBCUT SCH ×5 (01:08→23:50)
[2019-01-26 04:08] LABS: Hematocrit 22.9 VOL% (42.0-52.0); Hemoglobin 7.6 GM/DL (14.0-18.0); Immature Granulocytes % 0.9 %; Lymphocytes # 0.5 10*3/uL (1.4-4.0); Lymphocytes % 5.1 % (21.2-54.2); Mean Corpuscular HGB Conc 33.2 GM/DL (32-36); Mean Corpuscular Hemoglobin 30 PG (27-34); Mean Corpuscular Volume 91.6 FL (87-102); Mean Platelet Volume 13.3 FL (9.6-12.0); Monocytes # 0.8 10*3/uL (0.11-0.8); Monocytes % 7.3 % (1.7-12.7); Neutrophils # 9.2 10*3/uL (1.4-7.4); Neutrophils % 86.7 % (38.7-73.9); Platelet Count 177 T/CUMM (130-400); Red Cell Distribution Width 14.3 % (9.3-17.3); White Blood Count 10.6 T/CUMM (4-12)
[2019-01-26 04:10] LABS: ABG Base Excess 1.5 MMOL/L (-2.5-2.5); ABG HCO3 25.6 MMOL/L (20-26); ABG PCO2 38.2 MM HG (35-48); ABG PH 7.444 (7.35-7.45); ABG PO2 121.1 MM HG (80-95); ABG TCO2 26.8 MMOL/L (23-27); Allen Test Positive; Pt O2 Delivery Device Ventilator
[2019-01-26 04:32] LABS: Calcium 8.5 MG/DL (8.5-10.1); Osmolality,Calculated 306.9 MOS/KG (273-304); Potassium 4.9 MMOL/L (3.5-5.1)
[2019-01-26] MEDS: PROPOFOL 1,000 MG/100 ML BOTTLE IV SCH (05:28)
[2019-01-26] MEDS: PIPERACILLIN/TAZOBACTAM 3,375 MG in SODIUM CHLORIDE 0.9% 100 ML IV SCH ×2 (05:40→16:14)
[2019-01-26] MEDS: MIDAZOLAM 100 MG in SODIUM CHLORIDE 0.9% 80 ML IV PRN (06:42)
[2019-01-26] MEDS: ALBUTEROL/IPRATROPIUM 3 ML NEB RESP TX SCH ×4 (07:30→20:09)
[2019-01-26] MEDS: FINASTERIDE 5 MG TABLET PO SCH (08:47)
[2019-01-26] MEDS: GEMFIBROZIL 600 MG TABLET PO SCH ×2 (08:47→16:14)
[2019-01-26] MEDS: SODIUM CHLORIDE 1 GM TABLET PER TUBE SCH ×2 (08:47→21:47)
[2019-01-26] MEDS: RANOLAZINE 500 MG TABLET PO SCH ×2 (08:47→21:45)
[2019-01-26] MEDS: DOCUSATE SODIUM 100 MG CAPSULE PO SCH (08:47)
[2019-01-26] MEDS: ASPIRIN CHEW 81 MG TABLET PO SCH (08:47)
[2019-01-26] MEDS: CLOPIDOGREL 75 MG TABLET PO SCH (08:47)
[2019-01-26] MEDS: ASCORBIC ACID 500 MG TABLET PO SCH ×2 (08:47→21:46)
[2019-01-26] MEDS: ISOSORBIDE MONONITRATE 30 MG TABLET PO SCH (08:48)
[2019-01-26] MEDS: MAGNESIUM OXIDE 400 MG TABLET PO SCH ×2 (08:49→21:47)
[2019-01-26] MEDS: FUROSEMIDE 40 MG/4 ML VIAL IV SCH ×2 (08:49→16:13)
[2019-01-26] MEDS: POLYETHYLENE GLYCOL POWDER 17 GM PACK PO SCH (08:49)
[2019-01-26] MEDS: LANSOPRAZOLE ODT 30 MG TABLET PER TUBE SCH (08:49)
[2019-01-26] MEDS: ENOXAPARIN 30 MG/0.3 ML SYRINGE SUBCUT SCH (12:06)
[2019-01-26] MEDS: ESCITALOPRAM 10 MG TABLET PO SCH (21:45)
[2019-01-26] MEDS: ATORVASTATIN 40 MG TABLET PO SCH (21:46)
[2019-01-27] MEDS: ALBUTEROL/IPRATROPIUM 3 ML NEB RESP TX SCH ×4 (00:53→19:10)
[2019-01-27] MEDS: MIDAZOLAM 100 MG in SODIUM CHLORIDE 0.9% 80 ML IV PRN (00:53)
[2019-01-27] MEDS: PIPERACILLIN/TAZOBACTAM 3,375 MG in SODIUM CHLORIDE 0.9% 100 ML IV SCH ×2 (04:20→17:33)
[2019-01-27 04:23] LABS: Hematocrit 22.7 VOL% (42.0-52.0); Hemoglobin 7.5 GM/DL (14.0-18.0); Immature Granulocytes % 0.8 %; Immature Granulocytes Absolute 0.07 #; Lymphocytes # 0.5 10*3/uL (1.4-4.0); Lymphocytes % 5.3 % (21.2-54.2); Mean Corpuscular Hemoglobin 31 PG (27-34); Mean Corpuscular Volume 92.7 FL (87-102); Mean Platelet Volume 13.5 FL (9.6-12.0); Monocytes # 0.4 10*3/uL (0.11-0.8); Monocytes % 4.3 % (1.7-12.7); Neutrophils # 7.8 10*3/uL (1.4-7.4); Neutrophils % 89.6 % (38.7-73.9); Platelet Count 181 T/CUMM (130-400); Red Blood Count 2.45 MC/CUMM (3.8-5.5); Red Cell Distribution Width 14.5 % (9.3-17.3); White Blood Count 8.7 T/CUMM (4-12)
[2019-01-27 04:32] LABS: Calcium 8.8 MG/DL (8.5-10.1); Osmolality,Calculated 311.9 MOS/KG (273-304); Potassium 4.9 MMOL/L (3.5-5.1)
[2019-01-27] MEDS: SODIUM BICARB INJ 50 MEQ in SODIUM CHLORIDE 0.45% 1,000 ML IV SCH ×2 (05:00→20:30)
[2019-01-27 05:09] LABS: Prealbumin 20.2 MG/DL (20-40)
[2019-01-27] MEDS: PROPOFOL 1,000 MG/100 ML BOTTLE IV SCH ×2 (05:36→23:09)
[2019-01-27] MEDS: INSULIN REGULAR 100 UNIT/ML SUBCUT SCH ×3 (06:27→18:53)
[2019-01-27] MEDS: SODIUM CHLORIDE 1 GM TABLET PER TUBE SCH ×2 (09:54→21:25)
[2019-01-27] MEDS: FINASTERIDE 5 MG TABLET PO SCH (09:54)
[2019-01-27] MEDS: RANOLAZINE 500 MG TABLET PO SCH ×2 (09:54→21:25)
[2019-01-27] MEDS: DOCUSATE SODIUM 100 MG CAPSULE PO SCH (09:54)
[2019-01-27] MEDS: ISOSORBIDE MONONITRATE 30 MG TABLET PO SCH (09:54)
[2019-01-27] MEDS: MAGNESIUM OXIDE 400 MG TABLET PO SCH (09:54)
[2019-01-27] MEDS: CLOPIDOGREL 75 MG TABLET PO SCH (09:54)
[2019-01-27] MEDS: ASPIRIN CHEW 81 MG TABLET PO SCH (09:54)
[2019-01-27] MEDS: ASCORBIC ACID 500 MG TABLET PO SCH ×2 (09:54→21:25)
[2019-01-27] MEDS: POLYETHYLENE GLYCOL POWDER 17 GM PACK PO SCH (09:55)
[2019-01-27] MEDS: LANSOPRAZOLE ODT 30 MG TABLET PER TUBE SCH (09:55)
[2019-01-27] MEDS: GEMFIBROZIL 600 MG TABLET PO SCH ×2 (10:00→16:45)
[2019-01-27] MEDS: methylPREDNISolone SOD SUC 40 MG/1 ML VIAL IV SCH ×2 (10:14→16:50)
[2019-01-27] MEDS: FUROSEMIDE 40 MG/4 ML VIAL IV SCH ×2 (10:17→16:45)
[2019-01-27] MEDS ORDERED: SODIUM CHLORIDE 0.9% 1,000 ML IV PRN (14:03)
[2019-01-27] MEDS: ENOXAPARIN 30 MG/0.3 ML SYRINGE SUBCUT SCH (16:15)
[2019-01-27] MEDS: ESCITALOPRAM 10 MG TABLET PO SCH (21:25)
[2019-01-27] MEDS: ATORVASTATIN 40 MG TABLET PO SCH (21:25)
[2019-01-28] MEDS: ALBUTEROL/IPRATROPIUM 3 ML NEB RESP TX SCH ×4 (00:16→19:11)
[2019-01-28] MEDS: methylPREDNISolone SOD SUC 40 MG/1 ML VIAL IV SCH ×3 (00:26→18:29)
[2019-01-28] MEDS: INSULIN REGULAR 100 UNIT/ML SUBCUT SCH ×4 (00:54→19:28)
[2019-01-28 02:39] LABS: Basophils % 0.1 % (0.0-0.8); Hematocrit 35.1 VOL% (42.0-52.0); Hemoglobin 11.3 GM/DL (14.0-18.0); Immature Granulocytes % 1.6 %; Immature Granulocytes Absolute 0.15 #; Lymphocytes # 0.6 10*3/uL (1.4-4.0); Lymphocytes % 6.4 % (21.2-54.2); Mean Corpuscular HGB Conc 32.2 GM/DL (32-36); Mean Corpuscular Hemoglobin 31 PG (27-34); Mean Corpuscular Volume 94.6 FL (87-102); Mean Platelet Volume 12.8 FL (9.6-12.0); Monocytes # 0.6 10*3/uL (0.11-0.8); Monocytes % 6.2 % (1.7-12.7); NRBC # 0.02 10*3/uL; Neutrophils # 8.1 10*3/uL (1.4-7.4); Neutrophils % 85.7 % (38.7-73.9); Platelet Count 146 T/CUMM (130-400); Red Blood Count 3.71 MC/CUMM (3.8-5.5); Red Cell Distribution Width 14.8 % (9.3-17.3); White Blood Count 9.5 T/CUMM (4-12)
[2019-01-28 03:09] LABS: Osmolality,Calculated 318.7 MOS/KG (273-304); Potassium 5.1 MMOL/L (3.5-5.1)
[2019-01-28 03:28] LABS: Allen Test Positive; Pt O2 Delivery Device Ventilator
[2019-01-28 03:29] LABS: ABG Base Excess -0.3 MMOL/L (-2.5-2.5); ABG HCO3 24.2 MMOL/L (20-26); ABG Oxygen Saturation 94.6 % (95-100); ABG PCO2 38.7 MM HG (35-48); ABG PH 7.406 (7.35-7.45); ABG PO2 66.4 MM HG (80-95)
[2019-01-28] MEDS: PIPERACILLIN/TAZOBACTAM 3,375 MG in SODIUM CHLORIDE 0.9% 100 ML IV SCH ×2 (04:28→18:29)
[2019-01-28] MEDS: PROPOFOL 1,000 MG/100 ML BOTTLE IV SCH (04:29)
[2019-01-28] MEDS: SODIUM BICARB INJ 50 MEQ in SODIUM CHLORIDE 0.45% 1,000 ML IV SCH ×2 (07:30→18:30)
[2019-01-28] MEDS: POLYETHYLENE GLYCOL POWDER 17 GM PACK PO SCH (08:52)
[2019-01-28] MEDS: ISOSORBIDE MONONITRATE 30 MG TABLET PO SCH (08:52)
[2019-01-28] MEDS: GEMFIBROZIL 600 MG TABLET PO SCH ×2 (08:53→18:29)
[2019-01-28] MEDS: RANOLAZINE 500 MG TABLET PO SCH ×2 (08:53→20:25)
[2019-01-28] MEDS: LANSOPRAZOLE ODT 30 MG TABLET PER TUBE SCH (08:53)
[2019-01-28] MEDS: ASPIRIN CHEW 81 MG TABLET PO SCH (08:53)
[2019-01-28] MEDS: SODIUM CHLORIDE 1 GM TABLET PER TUBE SCH ×2 (08:53→20:25)
[2019-01-28] MEDS: ASCORBIC ACID 500 MG TABLET PO SCH ×2 (08:53→20:26)
[2019-01-28] MEDS: CLOPIDOGREL 75 MG TABLET PO SCH (08:53)
[2019-01-28] MEDS: FINASTERIDE 5 MG TABLET PO SCH (08:53)
[2019-01-28] MEDS ORDERED: ALBUMIN 25% 12.5 GM in PREMIX 1 EACH IV ONE ×3 (09:00→15:00)
[2019-01-28] MEDS: DOCUSATE SODIUM 100 MG CAPSULE PO SCH (10:57)
[2019-01-28] MEDS: FUROSEMIDE 40 MG/4 ML VIAL IV SCH (12:06)
[2019-01-28] MEDS: ENOXAPARIN 30 MG/0.3 ML SYRINGE SUBCUT SCH (13:15)
[2019-01-28] MEDS ORDERED: ALBUMIN 25% 25 GM in PREMIX 1 EACH IV ONE ×2 (15:00→18:00)
[2019-01-28] MEDS ORDERED: FUROSEMIDE 40 MG/4 ML VIAL IV SCH (15:00)
[2019-01-28] MEDS ORDERED: FUROSEMIDE 40 MG/4 ML VIAL IV ONE (19:00)
[2019-01-28] MEDS ORDERED: FUROSEMIDE 20 MG/2 ML VIAL ONE (20:08)
[2019-01-28] MEDS ORDERED: FUROSEMIDE 100 MG/10 ML VIAL ONE (20:08)
[2019-01-28] MEDS: ESCITALOPRAM 10 MG TABLET PO SCH (20:25)
[2019-01-28] MEDS: ATORVASTATIN 40 MG TABLET PO SCH (20:25)
[2019-01-29] MEDS ORDERED: ALBUMIN 25% 25 GM in PREMIX 1 EACH IV ONE
[2019-01-29] MEDS: ALBUTEROL/IPRATROPIUM 3 ML NEB RESP TX SCH ×4 (00:05→19:19)
[2019-01-29] MEDS: INSULIN REGULAR 100 UNIT/ML SUBCUT SCH ×3 (00:35→19:13)
[2019-01-29] MEDS: methylPREDNISolone SOD SUC 40 MG/1 ML VIAL IV SCH ×3 (00:35→19:21)
[2019-01-29] MEDS ORDERED: FUROSEMIDE 40 MG/4 ML VIAL IV ONE (01:00)
[2019-01-29] MEDS: PROPOFOL 1,000 MG/100 ML BOTTLE IV SCH ×3 (02:55→16:31)
[2019-01-29 04:28] LABS: ABG HCO3 24.4 MMOL/L (20-26); ABG Oxygen Saturation 94.8 % (95-100); ABG PCO2 42.1 MM HG (35-48); ABG PH 7.384 (7.35-7.45); ABG PO2 72.9 MM HG (80-95); ABG TCO2 23.2 MMOL/L (23-27); Pt O2 Delivery Device Ventilator
[2019-01-29] MEDS: PIPERACILLIN/TAZOBACTAM 3,375 MG in SODIUM CHLORIDE 0.9% 100 ML IV SCH ×2 (05:05→19:22)
[2019-01-29] MEDS ORDERED: ALBUMIN 25% 12.5 GM in PREMIX 1 EACH IV ONE (07:00)
[2019-01-29 07:35] LABS: Hematocrit 26.2 VOL% (42.0-52.0); Hemoglobin 8.7 GM/DL (14.0-18.0); Immature Granulocytes % 2.4 %; Immature Granulocytes Absolute 0.26 #; Lymphocytes # 0.6 10*3/uL (1.4-4.0); Lymphocytes % 5.6 % (21.2-54.2); Mean Corpuscular HGB Conc 33.2 GM/DL (32-36); Mean Corpuscular Hemoglobin 31 PG (27-34); Mean Corpuscular Volume 92.3 FL (87-102); Mean Platelet Volume 12.7 FL (9.6-12.0); Monocytes # 0.6 10*3/uL (0.11-0.8); Monocytes % 5.3 % (1.7-12.7); NRBC # 0.02 10*3/uL; Neutrophils # 9.5 10*3/uL (1.4-7.4); Neutrophils % 86.7 % (38.7-73.9); Platelet Count 177 T/CUMM (130-400); Red Blood Count 2.84 MC/CUMM (3.8-5.5); Red Cell Distribution Width 14.9 % (9.3-17.3)
[2019-01-29 07:44] LABS: INR 1.1; PT Patient Result 11.5 SECS
[2019-01-29 07:55] LABS: Bilirubin,Total 0.5 MG/DL (0.2-1.0); Calcium 9.1 MG/DL (8.5-10.1); Osmolality,Calculated 332.4 MOS/KG (273-304); Potassium 4.5 MMOL/L (3.5-5.1); Total Protein 5.5 G/DL (6.4-8.3)
[2019-01-29] MEDS: FUROSEMIDE 40 MG/4 ML VIAL IV SCH ×4 (10:57→20:30)
[2019-01-29 11:56] LABS: Hepatitis A Ab IgM Quant 0.22 Index; Hepatitis A Ab IgM Result Negative (Negative); Hepatitis B Core IgM Quant 0.13 Index; Hepatitis B Core IgM Result Negative (Negative); Hepatitis B Surface Ag Quant < 0.10 Index; Hepatitis B Surface Ag Result Negative (Negative); Hepatitis C Virus Ab Quant 0.04 Index; Hepatitis C Virus Ab Result Negative (Negative)
[2019-01-29 12:29] LABS: Amorphous Crystals,Urine Occasional /HPF (Few); Apearance,Urine Slightly Hazy (Clear); Bacteria,Urine Occasional /HPF (Few); Bilirubin,Urine Negative (Negative); Blood, Urine Small mg/dL (Negative); Glucose,Urine (UA) Negative (Negative); Hyaline Casts,Urine 1 /LPF (0-3); Ketones,Urine Negative (Negative); Mucus,Urine Occasional /LPF (Occasional); Nitrite,Urine Negative (Negative); Protein,Urine Negative; RBC,Urine 8 /HPF (0-4); Squamous Epithelial Cell,Urine Occasional /HPF (0-10); Urine Color Yellow (Yellow); Urine Urobilinogen < 2.0 EU/DL (0.2-1.0); WBC,Urine 13 /HPF (0-6)
[2019-01-29] MEDS: ASPIRIN CHEW 81 MG TABLET PO SCH (15:09)
[2019-01-29] MEDS: SODIUM CHLORIDE 1 GM TABLET PER TUBE SCH ×2 (15:09→20:46)
[2019-01-29] MEDS: ASCORBIC ACID 500 MG TABLET PO SCH ×2 (15:09→20:46)
[2019-01-29] MEDS: FINASTERIDE 5 MG TABLET PO SCH (15:09)
[2019-01-29] MEDS: LANSOPRAZOLE ODT 30 MG TABLET PER TUBE SCH (15:09)
[2019-01-29] MEDS: RANOLAZINE 500 MG TABLET PO SCH ×2 (15:09→20:46)
[2019-01-29] MEDS: CLOPIDOGREL 75 MG TABLET PO SCH (15:09)
[2019-01-29] MEDS: GEMFIBROZIL 600 MG TABLET PO SCH ×2 (15:10→19:21)
[2019-01-29] MEDS: ISOSORBIDE MONONITRATE 30 MG TABLET PO SCH (15:10)
[2019-01-29] MEDS: POLYETHYLENE GLYCOL POWDER 17 GM PACK PO SCH (15:10)
[2019-01-29] MEDS: DOCUSATE SODIUM 100 MG CAPSULE PO SCH (15:10)
[2019-01-29] MEDS ORDERED: HEPARIN 10,000 UNIT/10 ML VIAL IV PRN (16:17)
[2019-01-29] MEDS: ENOXAPARIN 30 MG/0.3 ML SYRINGE SUBCUT SCH (19:14)
[2019-01-29] MEDS: ATORVASTATIN 40 MG TABLET PO SCH (20:46)
[2019-01-29] MEDS: ESCITALOPRAM 10 MG TABLET PO SCH (20:46)
[2019-01-30] MEDS: methylPREDNISolone SOD SUC 40 MG/1 ML VIAL IV SCH ×3 (00:05→17:24)
[2019-01-30] MEDS: INSULIN REGULAR 100 UNIT/ML SUBCUT SCH ×4 (00:10→19:31)
[2019-01-30] MEDS: ALBUTEROL/IPRATROPIUM 3 ML NEB RESP TX SCH ×4 (01:07→20:11)
[2019-01-30 03:02] LABS: ABG Base Excess -0.6 MMOL/L (-2.5-2.5); ABG Oxygen Saturation 98.8 % (95-100); ABG PCO2 41.3 MM HG (35-48); ABG PH 7.381 (7.35-7.45); ABG TCO2 22.5 MMOL/L (23-27); Allen Test Positive; Pt O2 Delivery Device Ventilator
[2019-01-30 05:50] LABS: Hematocrit 27.4 VOL% (42.0-52.0); Hemoglobin 8.9 GM/DL (14.0-18.0); Immature Granulocytes % 1.9 %; Immature Granulocytes Absolute 0.26 #; Lymphocytes # 0.5 10*3/uL (1.4-4.0); Lymphocytes % 3.9 % (21.2-54.2); Mean Corpuscular HGB Conc 32.5 GM/DL (32-36); Mean Corpuscular Hemoglobin 31 PG (27-34); Mean Corpuscular Volume 94.2 FL (87-102); Mean Platelet Volume 12.2 FL (9.6-12.0); Monocytes # 0.9 10*3/uL (0.11-0.8); Monocytes % 6.2 % (1.7-12.7); NRBC # 0.03 10*3/uL; Neutrophils # 12.1 10*3/uL (1.4-7.4); Platelet Count 189 T/CUMM (130-400); Red Blood Count 2.91 MC/CUMM (3.8-5.5); Red Cell Distribution Width 15.2 % (9.3-17.3); White Blood Count 13.7 T/CUMM (4-12)
[2019-01-30] MEDS: PROPOFOL 1,000 MG/100 ML BOTTLE IV SCH ×3 (05:51→23:29)
[2019-01-30] MEDS: PIPERACILLIN/TAZOBACTAM 3,375 MG in SODIUM CHLORIDE 0.9% 100 ML IV SCH (05:59)
[2019-01-30 06:07] LABS: Calcium 8.6 MG/DL (8.5-10.1); Osmolality,Calculated 320.2 MOS/KG (273-304); Potassium 4.6 MMOL/L (3.5-5.1)
[2019-01-30 06:21] LABS: Hypochromasia 1+; Lymphocytes 3 % (20-55); Ovalocytes Slight; Platelet Estimate Adequate; Segmented Neutrophils 85 % (50-85); Total Cells Counted 100
[2019-01-30] MEDS: FINASTERIDE 5 MG TABLET PO SCH (09:18)
[2019-01-30] MEDS: RANOLAZINE 500 MG TABLET PO SCH ×2 (09:18→19:59)
[2019-01-30] MEDS: LANSOPRAZOLE ODT 30 MG TABLET PER TUBE SCH (09:19)
[2019-01-30] MEDS: ASCORBIC ACID 500 MG TABLET PO SCH ×2 (09:19→19:59)
[2019-01-30] MEDS: ISOSORBIDE MONONITRATE 30 MG TABLET PO SCH (09:19)
[2019-01-30] MEDS: GEMFIBROZIL 600 MG TABLET PO SCH ×2 (09:19→17:24)
[2019-01-30] MEDS: ASPIRIN CHEW 81 MG TABLET PO SCH (09:20)
[2019-01-30] MEDS: CLOPIDOGREL 75 MG TABLET PO SCH (09:20)
[2019-01-30] MEDS: SODIUM CHLORIDE 1 GM TABLET PER TUBE SCH ×2 (09:20→20:02)
[2019-01-30] MEDS: POLYETHYLENE GLYCOL POWDER 17 GM PACK PO SCH (09:21)
[2019-01-30] MEDS: FUROSEMIDE 40 MG/4 ML VIAL IV SCH ×2 (09:22→16:40)
[2019-01-30] MEDS: DOCUSATE SODIUM 100 MG CAPSULE PO SCH (09:22)
[2019-01-30] MEDS: ENOXAPARIN 30 MG/0.3 ML SYRINGE SUBCUT SCH (11:46)
[2019-01-30] MEDS: ATORVASTATIN 40 MG TABLET PO SCH (20:00)
[2019-01-30] MEDS: ESCITALOPRAM 10 MG TABLET PO SCH (20:00)
[2019-01-31] MEDS: methylPREDNISolone SOD SUC 40 MG/1 ML VIAL IV SCH ×4 (00:03→20:34)
[2019-01-31] MEDS: INSULIN REGULAR 100 UNIT/ML SUBCUT SCH ×5 (00:06→23:55)
[2019-01-31] MEDS: ALBUTEROL/IPRATROPIUM 3 ML NEB RESP TX SCH ×4 (00:35→17:18)
[2019-01-31 03:16] LABS: Allen Test Positive; Pt O2 Delivery Device Ventilator
[2019-01-31 03:35] LABS: ABG Base Excess -0.3 MMOL/L (-2.5-2.5); ABG HCO3 24.2 MMOL/L (20-26); ABG Oxygen Saturation 98.3 % (95-100); ABG PCO2 45.9 MM HG (35-48); ABG PH 7.353 (7.35-7.45); ABG TCO2 23.7 MMOL/L (23-27)
[2019-01-31] MEDS: PROPOFOL 1,000 MG/100 ML BOTTLE IV SCH ×2 (05:56→11:30)
[2019-01-31] MEDS: POLYETHYLENE GLYCOL POWDER 17 GM PACK PO SCH (09:07)
[2019-01-31] MEDS: SODIUM CHLORIDE 1 GM TABLET PER TUBE SCH ×2 (09:07→20:34)
[2019-01-31] MEDS: RANOLAZINE 500 MG TABLET PO SCH ×2 (09:07→20:34)
[2019-01-31] MEDS: ASCORBIC ACID 500 MG TABLET PO SCH ×2 (09:07→20:34)
[2019-01-31] MEDS: CLOPIDOGREL 75 MG TABLET PO SCH (09:07)
[2019-01-31] MEDS: FINASTERIDE 5 MG TABLET PO SCH (09:07)
[2019-01-31] MEDS: GEMFIBROZIL 600 MG TABLET PO SCH ×2 (09:08→16:33)
[2019-01-31] MEDS: ISOSORBIDE MONONITRATE 30 MG TABLET PO SCH (09:08)
[2019-01-31] MEDS: LANSOPRAZOLE ODT 30 MG TABLET PER TUBE SCH (09:09)
[2019-01-31] MEDS: ASPIRIN CHEW 81 MG TABLET PO SCH (09:09)
[2019-01-31] MEDS: DOCUSATE SODIUM 100 MG CAPSULE PO SCH (09:09)
[2019-01-31] MEDS: PIPERACILLIN/TAZOBACTAM 3,375 MG in SODIUM CHLORIDE 0.9% 100 ML IV SCH ×2 (09:16→20:41)
[2019-01-31] MEDS: HEPARIN 5,000 UNIT/1 ML VIAL SUBCUT SCH ×2 (13:02→23:55)
[2019-01-31] MEDS: INSULIN GLARGINE 100 UNIT/ML SUBCUT SCH (13:04)
[2019-01-31] MEDS: DESITIN 4OZ/NYSTATIN 15 GRAM MIXTURE PASTE TOP SCH (20:34)
[2019-01-31] MEDS: ESCITALOPRAM 10 MG TABLET PO SCH (20:34)
[2019-01-31] MEDS: ATORVASTATIN 40 MG TABLET PO SCH (20:34)
[2019-02-01] MEDS: ALBUTEROL/IPRATROPIUM 3 ML NEB RESP TX SCH ×4 (00:37→19:38)
[2019-02-01] MEDS: PROPOFOL 1,000 MG/100 ML BOTTLE IV SCH ×3 (01:08→10:03)
[2019-02-01 04:38] LABS: ABG Base Excess -0.5 MMOL/L (-2.5-2.5); ABG HCO3 24.9 MMOL/L (20-26); ABG Oxygen Saturation 98.2 % (95-100); ABG PCO2 44.5 MM HG (35-48); ABG PH 7.366 (7.35-7.45); ABG PO2 131.8 MM HG (80-95); ABG TCO2 26.3 MMOL/L (23-27)
[2019-02-01] MEDS: INSULIN REGULAR 100 UNIT/ML SUBCUT SCH ×3 (05:14→19:04)
[2019-02-01 05:28] LABS: Basophils % 0.1 % (0.0-0.8); Hematocrit 24.6 VOL% (42.0-52.0); Immature Granulocytes % 2.8 %; Immature Granulocytes Absolute 0.56 #; Lymphocytes % 4.8 % (21.2-54.2); Mean Corpuscular HGB Conc 32.5 GM/DL (32-36); Mean Corpuscular Hemoglobin 31 PG (27-34); Mean Platelet Volume 12.5 FL (9.6-12.0); Monocytes # 1.4 10*3/uL (0.11-0.8); Monocytes % 7.1 % (1.7-12.7); NRBC # 0.07 10*3/uL; Neutrophils # 17.2 10*3/uL (1.4-7.4); Neutrophils % 85.2 % (38.7-73.9); Platelet Count 139 T/CUMM (130-400); Red Blood Count 2.59 MC/CUMM (3.8-5.5); Red Cell Distribution Width 15.6 % (9.3-17.3); White Blood Count 20.2 T/CUMM (4-12)
[2019-02-01 05:44] LABS: Calcium 8.5 MG/DL (8.5-10.1); Osmolality,Calculated 315.7 MOS/KG (273-304); Potassium 4.4 MMOL/L (3.5-5.1)
[2019-02-01 06:13] LABS: Lymphocytes 2 % (20-55); Nucleated Red Blood Cells 1 (0-5); Segmented Neutrophils 92 % (50-85); Total Cells Counted 100
[2019-02-01 06:14] LABS: Anisocytosis Slight; Microcytosis Slight; Polychromasia Slight
[2019-02-01 06:15] LABS: Platelet Estimate Adequate
[2019-02-01] MEDS: INSULIN GLARGINE 100 UNIT/ML SUBCUT SCH (09:56)
[2019-02-01] MEDS: methylPREDNISolone SOD SUC 40 MG/1 ML VIAL IV SCH ×2 (09:57→20:08)
[2019-02-01] MEDS: POLYETHYLENE GLYCOL POWDER 17 GM PACK PO SCH (09:57)
[2019-02-01] MEDS: GEMFIBROZIL 600 MG TABLET PO SCH ×2 (09:58→15:52)
[2019-02-01] MEDS: CLOPIDOGREL 75 MG TABLET PO SCH (09:58)
[2019-02-01] MEDS: SODIUM CHLORIDE 1 GM TABLET PER TUBE SCH ×2 (09:59→20:08)
[2019-02-01] MEDS: ASPIRIN CHEW 81 MG TABLET PO SCH (09:59)
[2019-02-01] MEDS: FINASTERIDE 5 MG TABLET PO SCH (09:59)
[2019-02-01] MEDS: RANOLAZINE 500 MG TABLET PO SCH ×2 (09:59→20:08)
[2019-02-01] MEDS: ASCORBIC ACID 500 MG TABLET PO SCH ×2 (09:59→20:08)
[2019-02-01] MEDS: ISOSORBIDE MONONITRATE 30 MG TABLET PO SCH (09:59)
[2019-02-01] MEDS: DOCUSATE SODIUM 100 MG CAPSULE PO SCH (09:59)
[2019-02-01] MEDS: LANSOPRAZOLE ODT 30 MG TABLET PER TUBE SCH (10:00)
[2019-02-01] MEDS: DESITIN 4OZ/NYSTATIN 15 GRAM MIXTURE PASTE TOP SCH ×2 (10:01→20:09)
[2019-02-01] MEDS: PIPERACILLIN/TAZOBACTAM 3,375 MG in SODIUM CHLORIDE 0.9% 100 ML IV SCH (10:02)
[2019-02-01] MEDS: HEPARIN 5,000 UNIT/1 ML VIAL SUBCUT SCH (11:59)
[2019-02-01] MEDS: MEROPENEM 500 MG in SODIUM CHLORIDE 0.9% 100 ML IV SCH (12:02)
[2019-02-01] MEDS: CLINDAMYCIN INJ 600 MG in PREMIX 1 EACH IV SCH ×2 (12:08→20:17)
[2019-02-01] MEDS ORDERED: ALBUMIN 25% 25 GM in PREMIX 1 EACH IV ONE (14:16)
[2019-02-01] MEDS: ALBUMIN 25% 25 GM in PREMIX 1 EACH IV PRN ×2 (16:46→17:57)
[2019-02-01] MEDS: ATORVASTATIN 40 MG TABLET PO SCH (20:08)
[2019-02-01] MEDS: ESCITALOPRAM 10 MG TABLET PO SCH (20:08)
[2019-02-02] MEDS: HEPARIN 5,000 UNIT/1 ML VIAL SUBCUT SCH ×2 (00:25→12:54)
[2019-02-02] MEDS: INSULIN REGULAR 100 UNIT/ML SUBCUT SCH ×4 (00:25→19:18)
[2019-02-02] MEDS: PROPOFOL 1,000 MG/100 ML BOTTLE IV SCH ×3 (00:25→20:53)
[2019-02-02] MEDS: MEROPENEM 500 MG in SODIUM CHLORIDE 0.9% 100 ML IV SCH ×2 (00:26→13:46)
[2019-02-02] MEDS: ALBUTEROL/IPRATROPIUM 3 ML NEB RESP TX SCH ×4 (01:11→20:20)
[2019-02-02] MEDS: CLINDAMYCIN INJ 600 MG in PREMIX 1 EACH IV SCH ×3 (02:43→20:52)
[2019-02-02 04:34] LABS: ABG Base Excess -4.9 MMOL/L (-2.5-2.5); ABG HCO3 20.3 MMOL/L (20-26); ABG Oxygen Saturation 98.3 % (95-100); ABG PCO2 34.5 MM HG (35-48); ABG PH 7.368 (7.35-7.45); ABG TCO2 18.7 MMOL/L (23-27)
[2019-02-02] MEDS: NOREPINEPHRINE 8 MG in SODIUM CHLORIDE 0.9% 242 ML IV PRN ×2 (05:30→20:26)
[2019-02-02 05:57] LABS: Hematocrit 21.9 VOL% (42.0-52.0); Hemoglobin 7.2 GM/DL (14.0-18.0); Immature Granulocytes % 5.6 %; Immature Granulocytes Absolute 1.28 #; Lymphocytes # 0.7 10*3/uL (1.4-4.0); Lymphocytes % 3.3 % (21.2-54.2); Mean Corpuscular HGB Conc 32.9 GM/DL (32-36); Mean Corpuscular Hemoglobin 32 PG (27-34); Mean Corpuscular Volume 96.9 FL (87-102); Mean Platelet Volume 12.8 FL (9.6-12.0); Monocytes # 1.8 10*3/uL (0.11-0.8); NRBC # 0.31 10*3/uL; Neutrophils # 18.9 10*3/uL (1.4-7.4); Neutrophils % 83.1 % (38.7-73.9); Platelet Count 102 T/CUMM (130-400); Red Blood Count 2.26 MC/CUMM (3.8-5.5); Red Cell Distribution Width 16.4 % (9.3-17.3); White Blood Count 22.8 T/CUMM (4-12)
[2019-02-02 06:13] LABS: Osmolality,Calculated 302.8 MOS/KG (273-304)
[2019-02-02 06:29] LABS: Band Neutrophils 3 % (0-10); Lymphocytes 3 % (20-55); Nucleated Red Blood Cells 2 (0-5); Platelet Estimate Adequate; Segmented Neutrophils 89 % (50-85); Total Cells Counted 100
[2019-02-02 06:30] LABS: Anisocytosis 2+; Basophilic Stippling Slight
[2019-02-02 06:31] LABS: Macrocytosis Slight
[2019-02-02] MEDS ORDERED: SODIUM CHLORIDE 0.9% 1,000 ML IV PRN (08:10)
[2019-02-02] MEDS: ASPIRIN CHEW 81 MG TABLET PO SCH (09:55)
[2019-02-02] MEDS: POLYETHYLENE GLYCOL POWDER 17 GM PACK PO SCH (09:55)
[2019-02-02] MEDS: RANOLAZINE 500 MG TABLET PO SCH (09:55)
[2019-02-02] MEDS: LANSOPRAZOLE ODT 30 MG TABLET PER TUBE SCH (09:55)
[2019-02-02] MEDS: GEMFIBROZIL 600 MG TABLET PO SCH ×2 (09:55→16:48)
[2019-02-02] MEDS: ASCORBIC ACID 500 MG TABLET PO SCH ×2 (09:55→20:54)
[2019-02-02] MEDS: DESITIN 4OZ/NYSTATIN 15 GRAM MIXTURE PASTE TOP SCH ×2 (09:55→20:54)
[2019-02-02] MEDS: DOCUSATE SODIUM 100 MG CAPSULE PO SCH (09:55)
[2019-02-02] MEDS: FINASTERIDE 5 MG TABLET PO SCH (09:55)
[2019-02-02] MEDS: methylPREDNISolone SOD SUC 40 MG/1 ML VIAL IV SCH ×2 (09:55→21:08)
[2019-02-02] MEDS: SODIUM CHLORIDE 1 GM TABLET PER TUBE SCH ×2 (09:55→20:54)
[2019-02-02] MEDS ORDERED: SODIUM BICARBONATE 50 MEQ/50 ML VIAL IV ONE ×2 (10:01→17:04)
[2019-02-02] MEDS ORDERED: FLUCONAZOLE INJ 200 MG in PREMIX 1 EACH IV SCH (10:30)
[2019-02-02] MEDS: INSULIN GLARGINE 100 UNIT/ML SUBCUT SCH (10:30)
[2019-02-02] MEDS: ISOSORBIDE MONONITRATE 30 MG TABLET PO SCH (10:30)
[2019-02-02] MEDS: CLOPIDOGREL 75 MG TABLET PO SCH (10:30)
[2019-02-02] MEDS: METOCLOPRAMIDE 10 MG/2 ML VIAL IV SCH ×2 (12:58→19:16)
[2019-02-02 15:07] LABS: Basophils # 0.1 10*3/uL (0.0-0.2); Basophils % 0.2 % (0.0-0.8); Hematocrit 26.4 VOL% (42.0-52.0); Hemoglobin 8.2 GM/DL (14.0-18.0); Immature Granulocytes % 5.5 %; Immature Granulocytes Absolute 1.88 #; Lymphocytes # 0.7 10*3/uL (1.4-4.0); Lymphocytes % 2.1 % (21.2-54.2); Mean Corpuscular HGB Conc 31.1 GM/DL (32-36); Mean Corpuscular Hemoglobin 31 PG (27-34); Mean Platelet Volume 12.7 FL (9.6-12.0); Monocytes # 3.3 10*3/uL (0.11-0.8); Monocytes % 9.6 % (1.7-12.7); Neutrophils # 28.5 10*3/uL (1.4-7.4); Neutrophils % 82.6 % (38.7-73.9); Platelet Count 111 T/CUMM (130-400); Red Blood Count 2.64 MC/CUMM (3.8-5.5); Red Cell Distribution Width 16.5 % (9.3-17.3); White Blood Count 34.4 T/CUMM (4-12)
[2019-02-02 15:40] LABS: Alanine Aminotransferase 4287 U/L (16-61); Albumin 3.1 G/DL (3.4-5.0); Alkaline Phosphatase 72 U/L (45-117); Aspartate Amino Transferase 5339 U/L (0-37); Blood Urea Nitrogen 102 MG/DL (7-18); Calcium 8.6 MG/DL (8.5-10.1); Glucose 73 MG/DL (74-106); Osmolality,Calculated 303.8 MOS/KG (273-304); Potassium 5.5 MMOL/L (3.5-5.1); Sodium 137 MMOL/L (136-145); Total Protein 5.6 G/DL (6.4-8.3)
[2019-02-02 15:43] LABS: Band Neutrophils 3 % (0-10); Lymphocytes 3 % (20-55); Nucleated Red Blood Cells 3 (0-5); Platelet Estimate Decreased; Polychromasia 1+; Segmented Neutrophils 86 % (50-85); Total Cells Counted 100
[2019-02-02 15:44] LABS: Macrocytosis 1+
[2019-02-02] MEDS ORDERED: SODIUM CHLORIDE 0.9% 1,000 ML IV ONE ×2 (17:14→20:35)
[2019-02-02] MEDS ORDERED: SODIUM BICARB INJ 150 MEQ in DEXTROSE 5% 850 ML IV SCH (17:30)
[2019-02-02] MEDS ORDERED: DEXTROSE 50% 25 GM/50 ML SYRINGE IV ONE (17:47)
[2019-02-02] MEDS ORDERED: PHENYLEPHRINE DRIP 40 MG/250 ML PREMIX IV PRN (19:50)
[2019-02-02] MEDS ORDERED: SODIUM BICARBONATE 50 MEQ/50 ML VIAL IV STA (20:35)
[2019-02-02] MEDS ORDERED: LANSOPRAZOLE ODT 30 MG TABLET PER TUBE SCH (21:00)
[2019-02-03] MEDS: HEPARIN 5,000 UNIT/1 ML VIAL SUBCUT SCH (01:02)
[2019-02-03] MEDS: MEROPENEM 500 MG in SODIUM CHLORIDE 0.9% 100 ML IV SCH (01:02)
[2019-02-03] MEDS: METOCLOPRAMIDE 10 MG/2 ML VIAL IV SCH (01:02)
[2019-02-03] MEDS: INSULIN REGULAR 100 UNIT/ML SUBCUT SCH (01:02)
[2019-02-03] MEDS: ALBUTEROL/IPRATROPIUM 3 ML NEB RESP TX SCH (01:19)
[2019-02-03 01:21] VITALS: BP 96/57
== END 2019-02-02 23:55 | disposition expired | DRG 291 ==
LOC: EDUNIT# → EDBD → N.ED 20:06 → SUATTDRO 23:21 → N.EDINP 23:21 → N.CC 23:56 → N.TELEN 01-18 15:17 → N.CC 01-23 03:45
PROVIDERS: ADMIT Internal Medicine Geriatric Medicine; ATTEND Internal Medicine